=== PATIENT | female | born 2005 | race Caucasian/White ===

== ENCOUNTER 2025-04-23 15:59 | Emergency (ER) | payer OTHER, MEDICAID ==
[~2025-04-23] VITALS: Ht 170.2 cm; Wt 88.0 kg
[2025-04-23 16:17] VITALS: TEMP 98.2
[2025-04-23] MEDS: HYDROCODONE/ACETAMINOPHEN 5-325 MG TABLET PO ONE (16:53)
[2025-04-23] MEDS: LIDOCAINE 5% TRANSDERMAL PATCH TD ONE (16:54)
[2025-04-23] MEDS: KETOROLAC TROMETHAMINE 30 MG/ML VIAL IM ONE (16:55)
[2025-04-23] MEDS ORDERED: IBUP-1492 PO (18:30)
[2025-04-23] MEDS ORDERED: CYCL-448 PO (18:30)
[2025-04-23 18:51] VITALS: BP 124/73; PULSE 86; RESP 18; O2SAT 100
== END 2025-04-23 19:30 | disposition home or self-care (01) ==
LOC: EMS 15:59
DX: S06.0X0A Concussion without loss of consciousness, initial encounter (principal); M25.512 Pain in left shoulder; M54.2 Cervicalgia; R11.2 Nausea with vomiting, unspecified; H53.8 Other visual disturbances; V49.40XA Driver injured in collision with unspecified motor vehicles in traffic accident, initial encounter; Y93.89 Activity, other specified; Y92.410 Unspecified street and highway as the place of occurrence of the external cause; Y99.8 Other external cause status
CPT/HCPCS: 99285; 70450; 84703; 73030; 72125; 96372; J1885